=== PATIENT | male | born 1965 | race Caucasian/White ===

== ENCOUNTER 2016-10-03 14:04 | Emergency (ER) | payer OTHER ==
[2016-10-03] MEDS ORDERED: ONDANSETRON 4 MG/2ML 2 ML VIAL ONE (14:50)
[2016-10-03] MEDS ORDERED: SODIUM CHLORIDE 0.9% 1,000 ML ONE (14:50)
[2016-10-03] MEDS ORDERED: KETOROLAC TROMETHAMINE 30 MG/ML 1 ML VIAL ONE (14:50)
[2016-10-03 15:14] LABS: ABSOLUTE NEUTROPHIL COUNT 5.5 K/mm3 (1.8-7.7); BASO # 0.1 K/mm3 (0.0-0.2); BASO % 0.7 % (0.2-1.0); EOS % 0.1 % (0.9-2.9); HEMATOCRIT 41.5 % (32.0-52.0); HEMOGLOBIN 14.1 gm/l (14.0-18.0); IMM NEUT% 0.3 % (0-1); LYMPH # 0.7 (1.0-4.8); LYMPH % 9.7 % (15-45); MEAN CELL VOLUME 83.5 fl (80.0-94.0); MEAN CORPUSCULAR HEMOGLOBIN 28.4 pg (27.0-31.0); MEAN PLATELET VOLUME 9.1 fl (7.4-10.4); MONO # 1.1 (0.0-0.8); MONO % 14.7 % (4-12); NEUT % 74.5 % (43-75); PLATELET COUNT 225 K/mm3 (130-400); RED CELL DISTRIBUTION WIDTH 12.5 % (11.5-14.5)
[2016-10-03 15:16] LABS: ALB/GLOB RATIO 1.3 (>1.0); ALBUMIN 4.1 gm/dL (3.5-5.7); CALCIUM 9.3 mg/dL (8.6-10.3)
[2016-10-03 16:27] LABS: SPECIFIC GRAVITY 1.025 (1.001-1.030); URINE BILIRUBIN NEGATIVE (NEGATIVE); URINE BLOOD TRACE (NEGATIVE); URINE GLUCOSE (UA) NEGATIVE (NEGATIVE); URINE LEUKOCYTE ESTERASE NEGATIVE (NEGATIVE); URINE NITRITE NEGATIVE (NEGATIVE); URINE PROTEIN 1+ (NEGATIVE); URINE UROBILINOGEN NORMAL (0-1 mg/dl)
[2016-10-03 16:28] LABS: URINE APPEARANCE HAZY; URINE COLOR AMBER
[2016-10-03 16:47] LABS: URINE RBC 0-1 /hpf
[2016-10-03 16:48] LABS: URINE BACTERIA 1+; URINE EPITHELIAL CELLS 0 /hpf; URINE MUCUS 1+
[2016-10-03] MEDS ORDERED: SULFAMETHOXAZOLE 800 MG/TRIMETHOPRIM 160 MG TABLET ONE (17:10)
--- NOTE | 2016-10-03 17:49 | CT ---
Name: GEORGIA BULLARD Exam: Noncontrast renal stone CT Comparison: 03/16/2014 Clinical History: Left flank pain Procedure: Helical CT using multidetector technique was applied to the abdomen and pelvis without contrast. Sagittal, axial and coronal reconstructions were obtained. An automated dose reduction technique was used to minimize patient radiation dose. Findings: CT abdomen (noncontrast): Lung bases are clear. Heart is not enlarged. There is no pericardial effusion. Noncontrast images of the liver, gallbladder, pancreas, spleen, adrenal glands, aorta, IVC and portal vein are normal. The renal pyramids are slightly increased in density raising question of medullary nephrocalcinosis or medullary sponge kidney. On the left, there are several 4 mm and less nonobstructing renal calculi. There is no hydronephrosis or ureterectasis. Stomach, small bowel and colon are normal. There is no free air, free fluid or suspicious adenopathy. There is advanced degenerative disc disease at L5-S1 associated with grade 1 retrolisthesis of L5 on S1. There is a moderate old superior plate fracture of T12. CT pelvis (noncontrast): Bladder is partially filled. Prostate and seminal vesicles are normal. Distal ureters are normal caliber. Venous vascular calcifications are present. There are few sigmoid diverticuli. Small bowel and colon are normal. There is no free air, free fluid or suspicious adenopathy. Impression: 1. Multiple 4 mm less nonobstructing left renal calculi. There is no hydronephrosis or ureterectasis. 2. Sigmoid colon diverticulosis without current evidence for diverticulitis 3. Normal appendix. There is no small bowel obstruction 4. Severe degenerative disc disease at L5-S1 with grade 1 retrolisthesis of L5 on S1. There is no change from the prior 5. Moderate old superior endplate fracture T12 similar to the prior Note: The above report was uploaded to [facility]'s electronic medical records system at 1745 hours.
== END 2016-10-03 18:23 | disposition home or self-care (01) ==
LOC: ED 14:04
DX: N39.0 Urinary tract infection, site not specified (principal); J45.909 Unspecified asthma, uncomplicated
CPT/HCPCS: 83690; 85025; 87086; 80053; 81001; 74176; 96375; 99284 ×2; 96374; 96361 ×2; A9270; J1885; J2405; J7030

== ENCOUNTER 2016-10-06 02:44 | Emergency (ER) | payer OTHER ==
[2016-10-06] MEDS ORDERED: SODIUM CHLORIDE 0.9% 1,000 ML ONE ×2 (03:06→03:49)
[2016-10-06] MEDS ORDERED: ONDANSETRON 4 MG/2ML 2 ML VIAL ONE ×3 (03:06→05:34)
[2016-10-06 03:32] LABS: ABSOLUTE NEUTROPHIL COUNT 6.4 K/mm3 (1.8-7.7); BASO % 0.3 % (0.2-1.0); EOS # 0.1 (0.0-0.5); EOS % 0.6 % (0.9-2.9); HEMATOCRIT 44.9 % (32.0-52.0); HEMOGLOBIN 15.3 gm/l (14.0-18.0); IMM NEUT% 0.3 % (0-1); LYMPH # 1.5 (1.0-4.8); LYMPH % 16.9 % (15-45); MEAN CELL VOLUME 82.5 fl (80.0-94.0); MEAN CORPUSCULAR HEMOGLOBIN 28.1 pg (27.0-31.0); MEAN CORPUSCULAR HGB CONC 34.1 g/dl (33.0-37.0); MEAN PLATELET VOLUME 9.5 fl (7.4-10.4); MONO # 0.9 (0.0-0.8); MONO % 10.4 % (4-12); NEUT % 71.5 % (43-75); PLATELET COUNT 218 K/mm3 (130-400); RED CELL DISTRIBUTION WIDTH 12.1 % (11.5-14.5)
[2016-10-06] MEDS ORDERED: MAALOX/LIDO2%VISC/SIMETHICONE 40 ML BOT ONE (03:37)
[2016-10-06 03:45] LABS: ALB/GLOB RATIO 1.2 (>1.0); ALBUMIN 4.1 gm/dL (3.5-5.7); CALCIUM 9.5 mg/dL (8.6-10.3)
[2016-10-06 05:01] LABS: URINE BILIRUBIN NEGATIVE (NEGATIVE); URINE BLOOD NEGATIVE (NEGATIVE); URINE GLUCOSE (UA) NEGATIVE (NEGATIVE); URINE LEUKOCYTE ESTERASE NEGATIVE (NEGATIVE); URINE NITRITE NEGATIVE (NEGATIVE); URINE PROTEIN NEGATIVE (NEGATIVE); URINE UROBILINOGEN NORMAL (0-1 mg/dl)
[2016-10-06 05:03] LABS: URINE APPEARANCE CLEAR; URINE COLOR YELLOW
--- NOTE | 2016-10-06 08:38 | RAD ---
CHEST 2 VIEWS HISTORY: Abdominal pain and vomiting. Frontal and lateral chest radiographs dated . COMPARISON: 06/12/2014. FINDINGS: LUNG VOLUMES: Hyperinflation. FOCAL AIRSPACE OPACITY: No gross airspace consolidation. PLEURAL EFFUSION: None. CARDIOMEDIASTINAL SILHOUETTE: Nonenlarged. PNEUMOTHORAX: None identified. OSSEOUS STRUCTURES: No grossly destructive lesions. IMPRESSION: No acute cardiopulmonary process noted. Hyperinflation, which can indicate obstructive pulmonary disease.
== END 2016-10-06 05:43 | disposition home or self-care (01) ==
LOC: ED 02:44
DX: R11.2 Nausea with vomiting, unspecified (principal); R10.9 Unspecified abdominal pain; J45.909 Unspecified asthma, uncomplicated